=== PATIENT | male | born 1985 | race Caucasian/White ===

== ENCOUNTER 2021-05-24 22:12 | Emergency (ER) | payer OTHER, BC ==
[2021-05-25] MEDS ORDERED: NORFLEX 100 MG100 MG PO (03:40)
[2021-05-25] MEDS ORDERED: IBUPROFEN600 MG PO (03:40)
== END 2021-05-25 03:48 | disposition home or self-care (01) ==
LOC: ER1 22:12
DX: S20.212A Contusion of left front wall of thorax, initial encounter (principal); E11.9 Type 2 diabetes mellitus without complications; V49.40XA Driver injured in collision with unspecified motor vehicles in traffic accident, initial encounter; Y92.410 Unspecified street and highway as the place of occurrence of the external cause
CPT/HCPCS: 71111; 99284